=== PATIENT | male | born 1975 | race African-American/Black ===

== ENCOUNTER 2019-01-11 00:29 | Emergency (ER) | payer OTHER ==
[2019-01-11] MEDS: LORAZEPAM 0.5 MG TAB PO (01:36)
== END 2019-01-11 02:42 | disposition home or self-care (01) ==
LOC: E/R 00:29
DX: F41.9 Anxiety disorder, unspecified (principal); R00.2 Palpitations
CPT/HCPCS: 93005; 99283-25

== ENCOUNTER 2019-02-02 13:16 | Emergency (ER) | payer OTHER ==
[2019-02-02] MEDS: LORAZEPAM 1 MG TAB PO (13:54)
[2019-02-02 14:01] LABS: ADD MAN DIFF? NO
[2019-02-02 14:05] LABS: WHITE BLOOD COUNT 5.7 10^3/ul (4.8-10.8)
[2019-02-02 14:05] LABS: BASOPHILS % 0.7 % (0.0-2.0); EOSINOPHILS # 0.1 10^3/ul (0.0-0.5); EOSINOPHILS % 2.1 % (0.0-7.0); HEMATOCRIT 44.5 % (42.0-52.0); HEMOGLOBIN 14.6 g/dl (14.0-18.0); LYMPHOCYTES % 35.1 % (15.0-51.0); MEAN CORPUSCULAR HEMOGLOBIN 29.6 pg (29.0-33.0); MEAN CORPUSCULAR HGB CONC 32.8 g/dl (32.0-37.0); MEAN CORPUSCULAR VOLUME 90.1 fl (82.0-101.0); MEAN PLATELET VOLUME 9.5 fl (7.4-10.4); MONOCYTE # 0.5 10^3/ul (0.3-0.9); MONOCYTES % 8.4 % (0.0-11.0); NEUTROPHIL # 3.1 10^3/ul (1.6-7.5); NEUTROPHILS % 53.5 % (39.0-77.0); PLATELET COUNT 206 10^3/UL (140-415); RED BLOOD COUNT 4.94 10^6/ul (4.70-6.10); RED CELL DISTRIBUTION WIDTH 12.1 % (11.5-14.5)
[2019-02-02 14:22] LABS: ALANINE AMINOTRANSFERASE 26 IU/L (13-69); ALBUMIN 4.3 g/dl (3.3-4.9); ALBUMIN/GLOBULIN RATIO 1.34; ALKALINE PHOSPHATASE 53 IU/L (42-121); ANION GAP 8 (5-13); ASPARTATE AMINO TRANSFERASE 25 IU/L (15-46); BILIRUBIN,INDIRECT 0.9 mg/dl (0-1.1); BILIRUBIN,TOTAL 0.9 mg/dl (0.2-1.3); BLOOD UREA NITROGEN 10 mg/dl (7-20); CALCIUM 9.3 mg/dl (8.4-10.2); CARBON DIOXIDE 30 mmol/L (21-31); CHLORIDE 105 mmol/L (97-110); CREATINE KINASE 207 IU/L (23-200); CREATININE 0.87 mg/dl (0.61-1.24); Estimated GFR > 60 mL/min (>60); GLUCOSE 95 mg/dl (70-220); POTASSIUM 4.3 mmol/L (3.5-5.1); SODIUM 143 mmol/L (135-144); TOTAL PROTEIN 7.5 g/dl (6.1-8.1)
[2019-02-02 14:31] LABS: CK INDEX 0.4; CK-MB 0.84 ng/ml (0.0-2.4)
[2019-02-02 14:35] LABS: TROPONIN-I < 0.012 ng/ml (0.000-0.120)
[2019-02-02 15:37] LABS: INR 0.92; PROTIME 12.5 Sec (11.9-14.9)
[2019-02-02 15:38] LABS: PARTIAL THROMBOPLASTIN TIME 35.6 Sec (23.0-35.0)
== END 2019-02-02 15:22 | disposition home or self-care (01) ==
LOC: FTE 13:16
DX: F41.9 Anxiety disorder, unspecified (principal); R00.2 Palpitations
CPT/HCPCS: 80053; 82550; 82553; 84484; 85025; 85610; 85730; 93005; 99284-25